=== PATIENT | female | born 1940 | race Caucasian/White ===

== ENCOUNTER 2019-06-28 02:33 | Emergency (ER) | payer MEDICARE ==
[2019-06-28] MEDS ORDERED: KLONOPIN1 MG PO (03:14)
[2019-06-28] MEDS ORDERED: SYNTHROID50 MCG PO (03:14)
[2019-06-28] MEDS ORDERED: BUPROPION HCL100 MG PO (03:15)
[2019-06-28 03:22] LABS: BASOPHILS 0.2 % (0-2); EOSINOPHILS 0.1 % (0-7); HEMATOCRIT 36.7 % (36.0-48.0); HEMOGLOBIN 12.2 g/dL (12-16); IMMATURE GRANULOCYTES 0.2 % (0-5); LYMPHOCYTES 8.5 % (15-50); MCH 30.3 pg (26.0-34.0); MCHC 33.2 g/dL (31.0-37.0); MCV 91.3 fL (80.0-100.0); MONOCYTES 8.6 % (2-11); NEUTROPHILS 82.4 % (40-80); PLATELET COUNT 231 10x3/uL (130-400); RBC 4.02 10x6/uL (4.00-5.40); RDW 13.5 % (11.5-14.5); WBC 13.5 10x3/uL (4.8-10.8)
[2019-06-28 03:35] LABS: CALC OSMOLALITY 282 mosm/kg (275-300); CALCIUM 9.2 mg/dL (8.5-10.1); CARBON DIOXIDE 24.9 mmol/L (21.0-32.0); CHLORIDE - SERUM 105 mmol/L (98-107); GLUCOSE 131 mg/dL (74-106); POTASSIUM - SERUM 4.3 mmol/L (3.5-5.1); SODIUM 139 mmol/L (136-145); UREA NITROGEN 21 mg/dL (7-18); eGFR NON AFRICAN AMERICAN 57 mL/min (90-120)
[2019-06-28 03:38] LABS: PROTIME 13.1 SECONDS (11.6-15.0)
[2019-06-28 03:41] LABS: BILIRUBIN NEGATIVE (NEGATIVE); GLUCOSE NEGATIVE (NEGATIVE); KETONE MODERATE mg/dL (NEGATIVE); NITRITE NEGATIVE (NEGATIVE); UROBILINOGEN NORMAL (NORMAL)
[2019-06-28 03:43] LABS: RED CELLS - URINE 0-5 /hpf (0-5); WHITE CELLS - URINE 0-5 /hpf (NEGATIVE)
[2019-06-28 03:44] LABS: BACTERIA FEW /hpf (NEGATIVE)
[2019-06-28 03:52] LABS: ALBUMIN 3.3 g/dL (3.4-5.0); ALKALINE PHOSPHATASE 94 U/L (30-120); ALT (SGPT) 23 U/L (10-68); BILIRUBIN - TOTAL 0.75 mg/dL (0.2-1.3); CKMB 0.4 U/L (0.0-3.6); CREATINE KINASE 57 UL (21-215); PROTEIN - SERUM 6.8 g/dL (6.4-8.2)
[2019-06-28 03:53] LABS: TROPONIN-I < 0.017 ng/mL (0.000-0.060)
[2019-06-28] MEDS ORDERED: FLAGYL500 MG PO (05:59)
[2019-06-28] MEDS ORDERED: PROMETHAZINE W473 ML PO (05:59)
[2019-06-28] MEDS ORDERED: LEVOFLOXACIN500 MG PO (05:59)
[2019-06-28 07:12] VITALS: BP 124/70
== END 2019-06-28 07:12 | disposition home or self-care (01) ==
LOC: D.ER 02:33
PROVIDERS: Family Medicine
DX: K52.9 Noninfective gastroenteritis and colitis, unspecified (principal); S01.01XA Laceration without foreign body of scalp, initial encounter; R55 Syncope and collapse; E07.9 Disorder of thyroid, unspecified